=== PATIENT | male | born 1995 | race Caucasian/White ===

== ENCOUNTER 2022-05-02 17:55 | Emergency (ER) | payer OTHER | END 2022-05-02 21:46 | disposition home or self-care (01) | LOC: ER1 17:55 | DX: S20.211A Contusion of right front wall of thorax, initial encounter (principal); S90.31XA Contusion of right foot, initial encounter; S80.211A Abrasion, right knee, initial encounter; M79.641 Pain in right hand; M25.522 Pain in left elbow; F17.290 Nicotine dependence, other tobacco product, uncomplicated; R40.2410 Glasgow coma scale score 13-15, unspecified time; V57.5XXA Driver of pick-up truck or van injured in collision with fixed or stationary object in traffic accident, initial encounter; Y92.219 Unspecified school as the place of occurrence of the external cause; Z23 Encounter for immunization; W22.10XA Striking against or struck by unspecified automobile airbag, initial encounter | CPT/HCPCS: 71260; 73630; 90471; 90715; 99284; Q9967 ==